=== PATIENT | female | born 1960 | race Hispanic/Latino ===

== ENCOUNTER 2017-11-10 17:39 | Emergency (ER) | payer BC, OTHER ==
[2017-11-10 18:44] LABS: APPEARANCE,URINE Clear (CLEAR); BILIRUBIN,URINE Negative (NEGATIVE); COLOR,URINE Yellow (YELLOW); GLUCOSE, URINE (UA) Negative (NEGATIVE); KETONES,URINE Negative (NEGATIVE); LEUKOCYTE ESTERASE ,URINE Trace (NEGATIVE); NITRATE,URINE Negative (NEGATIVE); OCCULT BLOOD,URINE Trace (NEGATIVE); PH,URINE 6.5 (5.0-8.0); PROTEIN,URINE Negative (NEGATIVE); UROBILINOGEN,URINE 0.2 mg/dL (0.2-1.0)
[2017-11-10 18:52] LABS: BASOPHILS % (AUTO) 0.7 % (0.0-5.0); EOSINOPHILS % (AUTO) 0.7 % (0.0-8.0); HEMATOCRIT 38.8 % (36-48); LYMPHOCYTES % (AUTO) 22.5 % (21.0-51.0); MEAN CORPUSCULAR HGB CONC 35.4 g/dL (32.0-36.0); MEAN CORPUSCULAR VOLUME 90.5 fL (79-99); MONOCYTES % (AUTO) 7.5 % (3.0-13.0); NEUTROPHILS % (AUTO) 68.6 % (40.0-77.0); NUCLEATED RED BLOOD CELLS 0.1 % (0.0-0.19); PLATELET COUNT (AUTO) 197 K/uL (130-400); RED BLOOD CELL COUNT(AUTO) 4.29 MIL/uL (4.00-5.50); RED CELL DISTRIBUTION WIDTH 13.4 % (11.0-15.5); WHITE BLOOD COUNT (AUTO) 9.3 K/uL (4.8-10.8)
[2017-11-10 18:59] LABS: BACTERIA,URINE Rare /HPF (None Seen); RBC,URINE 0-1 /HPF (0-1); SQUAMOUS EPITHELIAL CELL,UR Rare /LPF (0-2)
[2017-11-10 19:02] LABS: CREATININE 0.7 mg/dL (0.5-1.5); POTASSIUM 3.9 mmol/L (3.5-5.1)
[2017-11-10 19:07] LABS: ALBUMIN 3.8 g/dL (3.5-5.0); BILIRUBIN,TOTAL 0.2 mg/dL (0.2-1.0); TOTAL PROTEIN, SERUM 7.4 g/dL (6.0-8.3)
[2017-11-10] MEDS ORDERED: DiphenhydrAMINE HCL 50 MG/ML VIAL ONE (19:13)
[2017-11-10] MEDS ORDERED: ONDANSETRON HCL 4 MG/2 ML VIAL ONE (19:14)
[2017-11-10] MEDS ORDERED: KETOROLAC TROMETHAMINE 30MG/ML ONE (19:14)
[2017-11-10] MEDS ORDERED: METOCLOPRAMIDE 10 MG TABLET ONE (19:24)
[2017-11-10] MEDS ORDERED: LIDOCAINE HCL 2% VISCOUS 15 ML UDCUP ONE (22:40)
[2017-11-10] MEDS ORDERED: MAG HYDROX/AL HYDROX/SIMETH ES 30 ML SUSP UDCUP ONE (22:41)
== END 2017-11-10 23:39 | disposition home or self-care (01) ==
LOC: EDH 17:39
DX: R10.84 Generalized abdominal pain (principal); R11.2 Nausea with vomiting, unspecified; R51 Headache; R19.7 Diarrhea, unspecified; R07.89 Other chest pain; Z85.828 Personal history of other malignant neoplasm of skin
CPT/HCPCS: 36415; 76700; 80053; 81001; 85025; 87804 ×2; 96374; 96375; 99285; J1200; J1885; J2405

== ENCOUNTER 2018-08-14 18:07 | Emergency (ER) | payer BC ==
[2018-08-14] MEDS ORDERED: DiphenhydrAMINE HCL 50 MG/ML VIAL ONE (19:11)
[2018-08-14] MEDS ORDERED: ONDANSETRON ODT 4 MG TAB ONE (19:11)
[2018-08-14] MEDS ORDERED: KETOROLAC TROMETHAMINE 30MG/ML ONE (19:11)
== END 2018-08-14 20:11 | disposition home or self-care (01) ==
LOC: EDH 18:07
DX: G43.909 Migraine, unspecified, not intractable, without status migrainosus (principal)
CPT/HCPCS: 70450; 96372 ×2; 99284; J1200; J1885

== ENCOUNTER 2022-12-09 22:32 | Emergency (ER) | payer BC ==
[~2022-12-09] VITALS: Ht 154.9 cm; Wt 73.5 kg
[2022-12-09 23:57] LABS: BASOPHILS % (AUTO) 0.4 % (0.0-5.0); HEMATOCRIT 41.3 % (36-48); LYMPHOCYTES % (AUTO) 13.7 % (21.0-51.0); MEAN CORPUSCULAR HEMOGLOBIN 30.3 pg (27.0-33.0); MEAN CORPUSCULAR HGB CONC 33.4 g/dL (32.0-36.0); MEAN CORPUSCULAR VOLUME 90.8 fL (79-99); NEUTROPHILS % (AUTO) 77.5 % (40.0-77.0); PLATELET COUNT (AUTO) 224 K/uL (130-400); RED BLOOD CELL COUNT(AUTO) 4.55 MIL/uL (4.00-5.50); RED CELL DISTRIBUTION WIDTH 13.3 % (11.0-15.5); WHITE BLOOD COUNT (AUTO) 12.4 K/uL (4.8-10.8)
[2022-12-10 00:16] LABS: CREATININE 0.8 mg/dL (0.5-1.5)
[2022-12-10 00:27] LABS: ALBUMIN 3.9 g/dL (3.5-5.0); TOTAL PROTEIN, SERUM 7.3 g/dL (6.0-8.3)
[2022-12-10] MEDS ORDERED: ONDANSETRON 4MG INJ IVP ONE (00:30)
[2022-12-10] MEDS ORDERED: ASPIRIN 325MG TAB PO ONE (00:30)
[2022-12-10] MEDS ORDERED: MORPHINE 2 MG SYG IVP ONE (00:30)
[2022-12-10] MEDS ORDERED: NITROGLYCERIN 0.4 MG SL TAB SL PRN (00:30)
[2022-12-10] MEDS ORDERED: AMOX1TAB16 PO (00:44)
[2022-12-10] MEDS ORDERED: IBUP-1493 PO (00:44)
[2022-12-10 00:54] VITALS: BP 134/88
== END 2022-12-10 01:07 | disposition home or self-care (01) ==
LOC: EDH 22:32
DX: H66.90 Otitis media, unspecified, unspecified ear (principal)
CPT/HCPCS: 99284; 96374; 84484; 80053; 83880; 85025; 85378; 36415; 93005; J2405

== ENCOUNTER → 2024-02-26 | Outpatient (CLI) | payer MEDICARE ==
[~2024-02-26] MED LIST: AMOX1TAB16 PO; IBUP-1493 PO
== END | disposition home or self-care (01) ==
LOC: RAH 09:40
PROVIDERS: ATTEND Family Medicine
DX: G31.89 Other specified degenerative diseases of nervous system (principal); M25.48 Effusion, other site; R51.9 Headache, unspecified
CPT/HCPCS: 70551